=== PATIENT | female | born 1975 | race Two or more races ===

== ENCOUNTER 2024-02-20 15:06 | Emergency (ER) | payer MEDICAID ==
[~2024-02-20] VITALS: Ht 144.8 cm; Wt 76.1 kg
[2024-02-20 16:36] VITALS: BP 150/84; PULSE 90; RESP 18; TEMP 98; O2SAT 96
[2024-02-20] MEDS ORDERED: IBUP-1456 PO (17:38)
== END 2024-02-20 17:53 | disposition home or self-care (01) ==
LOC: ER 15:06
DX: S62.521A Displaced fracture of distal phalanx of right thumb, initial encounter for closed fracture (principal); W18.30XA Fall on same level, unspecified, initial encounter; Y93.89 Activity, other specified; Y92.89 Other specified places as the place of occurrence of the external cause; Y99.8 Other external cause status
CPT/HCPCS: 29130; 73130